=== PATIENT | male | born 1990 | race African-American/Black ===

== ENCOUNTER 2017-06-01 21:55 | Emergency (ER) | payer SELFPAY ==
[~2017-06-01 21:55] MED LIST: Iopamidol 370 76% 125 ML VIAL FS ONE
[2017-06-01] MEDS ORDERED: HYDROcodone/Acetaminophen 10/325 mg Tablet ONE (23:13)
[2017-06-01] MEDS ORDERED: Diazepam 5 MG TAB ONE (23:14)
[2017-06-01] MEDS ORDERED: Diazepam 10 MG/2 ML SYRINGE ONE (23:14)
[2017-06-01] MEDS ORDERED: Naproxen 500 MG TAB ONE (23:14)
[2017-06-01 23:24] LABS: #Basophils 0.1 thou/uL (0.0-0.2); #Eosinphils 0.2 thou/uL (0.0-0.7); #Monocytes 0.5 thou/uL (0.11-0.59); #Neutrophils 3.5 thou/uL (1.40-6.50); %Basophils 0.8 % (0.0-1.0); %Eosinophils 3.5 % (0.0-10.0); %Lymphocytes 31.5 % (21.0-51.0); %Monocytes 7.8 % (0.0-10.0); %Neutrophils 56.3 % (42.0-75.0); Hemoglobin 14.7 g/dL (14.0-18.0); Mean Corpuscular HGB CONC 33.1 g/dL (32.0-36.0); Mean Corpuscular Hemoglobin 30.4 pg (27.0-31.0); Mean Corpuscular Volume 91.7 fl (80.0-94.0); Mean Platelet Volume 7.7 fL (7.4-10.4); Platelet Count 190 thou/uL (130-400); RBC Distribution Width 11.8 % (11.5-14.5); Red Blood Cell (RBC) Count 4.85 mill/uL (4.70-6.10); White Blood Cell (WBC) Count 6.2 thou/uL (4.8-10.8)
[2017-06-01 23:45] LABS: ALT (SGPT) 42 U/L (8-55); AST (SGOT) 40 U/L (5-34); Albumin 4.2 g/dL (3.5-5.0); Alkaline Phosphatase 44 U/L (40-150); Anion Gap 14 mmol/L (10-20); BUN (Urea Nitrogen) 11 mg/dL (8.9-20.6); Bilirubin, Total 0.4 mg/dL (0.2-1.2); Calc. Creatinine Clearance 0 mL/min (70-130); Calcium 9.1 mg/dL (7.8-10.44); Carbon Dioxide 26 mmol/L (22-29); Chloride 105 mmol/L (98-107); Estimated GFR-MDRD Greater than 90; Globulin 3.4 g/dL (2.4-3.5); Glucose 100 mg/dL (70-105); Lipase 14 U/L (8-78); Potassium 4.2 mmol/L (3.5-5.1); Protein, Total 7.6 g/dL (6.0-8.3); Sodium 141 mmol/L (136-145)
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
--- NOTE | 2017-06-02 00:03 | CT ---
CT CHEST WITH CONTRAST CT ABDOMEN WITH CONTRAST CT PELVIS WITH CONTRAST CT LIMITED THORACIC SPINE WITH CONTRAST CT LIMITED LUMBOSACRAL SPINE WITH CONTRAST: FINDINGS: The lungs are clear. No pneumothorax. No traumatic hematocele. No consolidation or aspiration. Thyroid is unremarkable. No pericardial effusion. No acute aortic injury. No adenopathy. Liver, gallbladder, spleen, pancreas, kidneys are atraumatic. No free intraperitoneal gas or fluid. No mesenteric hematoma. No pelvic fracture. No spine fracture. Visualized portions of the shoulder joints and clavicles are unremarkable. Sternum and manubrium are intact. No spinus process fracture. The paraspinal muscles are normal. No soft tissue contusion is appreciated. IMPRESSION: No acute traumatic abnormality in the chest, abdomen, or pelvis. POS: [facility]
== END 2017-06-02 00:26 | disposition home or self-care (01) ==
LOC: MADERS 21:55
DX: T07.XXXA Unspecified multiple injuries, initial encounter (principal); F17.210 Nicotine dependence, cigarettes, uncomplicated; V79.9XXA Bus occupant (driver) (passenger) injured in unspecified traffic accident, initial encounter
CPT/HCPCS: 36415; 70450; 71260; 72125; 74177; 80053; 83690; 85025; J3360